=== PATIENT | female | born 1990 | race Caucasian/White ===

== ENCOUNTER 2016-05-27 09:30 | Inpatient (IN) | payer OTHER ==
[~2016-05-27] VITALS: Ht 167.6 cm; Wt 127.0 kg
--- NOTE | 2016-05-31 02:28 | HPE ---
DATE OF SCHEDULED ADMISSION: 06/03/2016 Coming for a primary section because of breech presentation. 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 Her lab values show that she is O positive, HIV negative, hepatitis negative, rapid plasma reagin (RPR) negative, rubella immune. Varicella nonimmune. Urine was negative. Pap showed ASCUS. Gonorrhea and chlamydia are negative. 1st-hour GTT was 142, and her 3-hour GTT fasting was 90, 1-hour was 165, 2-hour was 104, and 3-hour was 102. She has been monitored presently and in the past because of breech presentation, and we had a discussion regarding a primary section for breech presentation. We did mention to her that, at the time of admission for elective primary section, we would re-evaluate whether she is breech or not and, at that time, if she still continued to be breech, we go head and to do the section. The rest of her history is unremarkable. She has weekly nonstress tests showing category 1 strip. She is normocephalic, atraumatic. Neck full range of motion. Pupils equal and reactive to light. Distal pulses are symmetric. No evidence of deep venous thrombosis (DVT), pulmonary embolism (PE), or superficial phlebitis. Chest is clear bilaterally to the bases. No wheezes or rhonchi. No costovertebral angle (CVA) tenderness. Uterus is , appropriate symphysis fundus height with four quadrant bowel sounds noted. She has no rashes, lesions, or pruritus. No arthralgia or myalgia. No complaint of cough, wheezes, shortness of breath, or dyspnea on exertion. She has no chest pain. ALLERGIES: BENADRYL apparently gives her rash, as does SULFA. She has no complaints of cough, wheezes, shortness of breath, or dyspnea on exertion. No chest pain. Is not bleeding. Neurologically complete. No incontinence, urgency, or frequency. No nausea, vomiting, diarrhea, or constipation. Her 3-hour GTT was normal. She does have a BMI over 40. Her gynecologic history shows that she has ASCUS on a Pap smear. She does not smoke or drink or abuse alcohol and is with no domestic violence. We discussed the risks and benefits of section, including hemorrhage, infection, perforation, , remote possibility of blood transfusion, remote possibility of hysterectomy, remote possibility of laceration, the fetus in a intensive care unit (NICU) for evaluation. We also discussed skin cleansing prior to section. I have asked her to get some Hibiclens and do that 2-3 times per day for the next 5 days. She had an amniotic fluid index (VESNA) today, which showed that it was 11.2, breech presentation. heart was normal at 138 beats per minute. Placenta was anterior, category class III with some calcifications. Normal movement of limbs, and we did see occasional respirations. IN SUMMARY: We have a term gestation for primary section because of breech presentation.
[2016-05-31] MEDS ORDERED: CLAR10CA3 PO (13:29)
[2016-05-31] MEDS ORDERED: VALT1TAB PO (13:29)
[2016-05-31] MEDS ORDERED: PREN1TAB18 PO (13:29)
[2016-05-31] MEDS ORDERED: MIRA3350 PO (13:29)
[2016-06-03] MEDS ORDERED: BICITRA 30ML SOLN UDC PO ONE (06:00)
[2016-06-03] MEDS ORDERED: BUPIVACAINE HCL 0.25% 10 ML VIAL SC ONE (06:00)
[2016-06-03] MEDS ORDERED: ACETAMINOPHEN 650 MG SUPP PR SCH (06:15)
[2016-06-03 06:21] VITALS: BP 127/68
--- NOTE | 2016-06-03 10:42 | DSES ---
DATE OF ADMISSION: 06/03/2016 DATE OF DISCHARGE: 06/03/2016 This lady was admitted for a primary section because of breech presentation. On admission, we had done a scan, at which time we found that it was vertex presenting. Amniotic fluid total in two quadrants was 13.26 cm. cardiac activity was 144 beats per minute. Limb movement was noted and there was breathing movement noted, giving her biophysical profile of 8/8. The patient was very upset because baby had turned from breech to vertex and wanted have a section; however, initially, indication for section was breech presentation. After discussing the risks and benefits of section versus vaginal delivery. and more importantly, if she spontaneously goes into labor, it would improve her chance of vaginal delivery. The patient was still unconvinced that was the root of method that delivery that she wanted; however, there is no other indication for section. On pelvic examination, vertex was presenting. She is 2 cm, midposition, about 50% effaced and minus three station, with some show noted because of the digital examination. The rest the examination is unremarkable. She had a category one strip. Normocephalic, atraumatic. Pupils equal and reactive to light. NECK: Full range of motion. CHEST: Clear bilaterally to bases. HEART: Sounds are normal. No cerebrovascular accident (CVA) tenderness. Nontender uterus. Four quadrant bowel sounds are noted. Appropriate symphysis fundus height. She has no rashes or lesions or pruritus. She is wearing glasses. No arthralgia, myalgia. No complaints of cough, wheezes, shortness of breath or dyspnea on exertion. No chest pain. She is not bleeding. She is neurologically complete. No incontinency, urgency or frequency. No nausea, vomiting, diarrhea or constipation. No diabetic issues. PAST MEDICAL HISTORY: Unremarkable. She does not smoke or drink, does not abuse drugs. She is to a soldier. In summary we have a 39+ weeks of gestation admitted for elective primary section because of breech presentation. Ultrasound diagnosis suggests a vertex presenting with a biophysical profile of 8/8 and an NST of 2/2. Patient is having an appointment next week for discussion of induction of labor at the appropriate interval at 41 weeks, at which time we will scan her and make sure that she is still in the vertex presentation.
== END 2016-06-03 07:00 | disposition home or self-care (01) | DRG 781 ==
LOC: M LDI 06-03 05:46
PROVIDERS: ADMIT Obstetrics & Gynecology; ATTEND Obstetrics & Gynecology
DX: O32.1XX0 Maternal care for breech presentation, not applicable or unspecified (principal); O98.513 Other viral diseases complicating pregnancy, third trimester; Z68.41 Body mass index [BMI] 40.0-44.9, adult; O99.213 Obesity complicating pregnancy, third trimester; Z88.2 Allergy status to sulfonamides; Z88.8 Allergy status to other drugs, medicaments and biological substances; E66.9 Obesity, unspecified; Z3A.39 39 weeks gestation of pregnancy; B00.9 Herpesviral infection, unspecified; Z79.899 Other long term (current) drug therapy

== ENCOUNTER 2016-06-09 06:29 | Inpatient (IN) | payer OTHER ==
[2016-06-09] VITALS (11 sets, daily range): BP systolic 116–176; BP diastolic 66–92
[~2016-06-09] VITALS: Ht 167.6 cm; Wt 125.0 kg
[~2016-06-09 06:29] MED LIST: CLAR10CA3 PO; MIRA3350 PO; PREN1TAB18 PO; VALT1TAB PO
[2016-06-09 08:13] LABS: MEAN CORPUSCULAR HEMOGLOBIN 30.6 pg (27.0-33.0); MEAN CORPUSCULAR HGB CONC 32.8 g/dl (32.0-36.5); MEAN CORPUSCULAR VOLUME 93.4 fl (80.0-96.0); RED CELL DISTRIBUTION WIDTH 14.4 % (11.5-14.5); WHITE BLOOD COUNT 8.3 K/mm3 (4.0-10.0)
[2016-06-09] MEDS ORDERED: LACTATED RINGER'S 1000 ML IV STA (09:13)
[2016-06-09] MEDS ORDERED: miSOPROStol 25 MCG 1/4 TAB (S0191) PO ONE ×2 (09:15→13:15)
[2016-06-09] MEDS ORDERED: miSOPROStol 50 MCG 1/2 TAB (S0191) PV ONE (17:45)
[2016-06-09] MEDS ORDERED: miSOPROStol 50 MCG 1/2 TAB (S0191) PO ONE (21:30)
[2016-06-09] MEDS ORDERED: diphenhydrAMINE 25 MG CAP PO ONE (22:00)
[2016-06-10] VITALS (14 sets, daily range): BP systolic 119–138; BP diastolic 51–74
[2016-06-10] MEDS: miSOPROStol 50 MCG 1/2 TAB (S0191) PO SCH ×2 (14:00→18:25)
[2016-06-10] MEDS ORDERED: miSOPROStol 50 MCG 1/2 TAB (S0191) As Ordered ONE (14:18)
[2016-06-10] MEDS ORDERED: PROMETHAZINE INJ 25 MG/ML VIAL (J2550) IV ONE (23:30)
[2016-06-10] MEDS ORDERED: OXYTOCIN DRIP 30 UNITS in APPROPRIATE DILUENT 1 EA IV SCH (23:30)
[2016-06-10] MEDS ORDERED: BUTORPHANOL 2 MG/ML INJ (J0595) IV ONE (23:30)
[2016-06-10] MEDS: LR 1,000 ML IV SCH (23:39)
[2016-06-11] VITALS (18 sets, daily range): BP systolic 114–144; BP diastolic 56–79
[2016-06-11] MEDS: LR 1,000 ML IV SCH (07:49)
== END 2016-06-11 14:45 | disposition home or self-care (01) | DRG 782 ==
LOC: M LDI 06:29
PROVIDERS: ADMIT Obstetrics & Gynecology; ATTEND Obstetrics & Gynecology
PROC: 3E0DXGC Introduction of Other Therapeutic Substance into Mouth and Pharynx, External Approach (ICD-10-PCS; principal; 2016-06-09)
DX: O48.0 Post-term pregnancy (principal); O99.213 Obesity complicating pregnancy, third trimester; Z3A.40 40 weeks gestation of pregnancy; E66.9 Obesity, unspecified

== ENCOUNTER 2016-06-15 03:06 | Inpatient (IN) | payer OTHER ==
[~2016-06-15] VITALS: Ht 167.6 cm; Wt 127.0 kg
[2016-06-15] VITALS (12 sets, daily range): BP systolic 129–165; BP diastolic 60–91
[~2016-06-15 03:06] MED LIST changes: -CALC500C16 PO; -COLA100C PO; -KETOROLAC 60 MG/2 ML VIAL (J1885) As Ordered ONE; -LORA1SOL PO; -MORPHINE PRES-FREE INJ 10 MG/10 ML VIAL (J2274) As Ordered ONE; -MOTR200T44 PO; -ONDANSETRON 4MG/2ML VIAL (J2405) As Ordered ONE; -OXYC1TAB23 PO; -OXYTOCIN INJ 10 UNITS/ML VIAL (J2590) As Ordered ONE; -PRENTAB9 PO; -TUMS500C PO; -ePHEDrine SULFATE 25 MG/5 ML(5MG/ML) SYRINGE As Ordered ONE
--- NOTE | 2016-06-15 06:52 | HPE ---
DATE OF ADMISSION: 06/15/2016 This lady is a 26-year-old, 1, para 0, at 40 and 5 weeks of gestation with a history of contractions. She also had a history of questionable premature rupture of membranes; however this was dismissed after wearing a pad for an hour and also the fact that she was Nitrazine negative. On pelvic examination, she was found to be 1 cm with bulging membranes and ballottable presenting part which was vertex presenting. Her risk factors are that she has body mass index (BMI) greater than 40. She is Rh negative and is on HSV prophylaxis. She had previously been admitted for primary section about 10 days ago because of breech presentation which was persistent and when she came in for her primary section she was found to be vertex presenting. She was left for a week and the baby still presented as vertex. We discussed induction of labor. She had an attempted induction of labor with four sets of Cytotec, a program of Pitocin, and all that failed to do anything except give her some uterine contractions and irritability, but did not bring the presenting part down. She was then left for a week and was to come in for a BPP today as well as an appointment tomorrow for discussion of induction of labor. At that time, she will be 41 weeks of gestation. However, she called overnight complaining of contractions every 5 minutes and she said she was breathing through them and query thought she had ruptured membranes. While here, she does not appear in any distress. She had initially a category 2 strip, but with hydration IV, the contractions had spaced out and the heart showed some reactivity. She was to have her BPP and estimated weight ultrasound at 1500 hours today and we moved it up to 0600 hours this morning. On pelvic examination, she was found to be vertex, -4, ballottable, with 1 cm, bulging membranes. No vaginal bleeding. No vaginal loss. Her blood pressures have been in moderate range 158/80, 118 pulse, respirations are 20, and temperature is 98.4. She has urine of 1.015, pH 7, trace of protein and +1 for blood. She never exhibited any other signs of preeclampsia. She had had a previous preeclampsia evaluation which was negative. In summary at this time, with her lab work of O negative, HIV negative, hepatitis negative, RPR negative, rubella immune, Pap ASCUS, urine was negative, gonorrhea and chlamydia negative, GBS negative, and 1-hour glucose was 111, we have a patient at term early with uterine irritability and presenting part which is high. Our plan of management is to get the BPP and estimated weight this morning. Do NST again. Possible induction of labor, if we can with Sawyer bulb this time. The patient requests epidural for anesthesia and we await the appropriate consultations should she remain here for induction of labor. In summary, we have a early term patient with a high presenting part and uterine irritability. We had a discussion with her regarding the plan of management which was supposedly taking place tomorrow, but will take place today. Both her and her expressed understanding of the plan of care.
[2016-06-15] MEDS ORDERED: LR 1,000 ML IV SCH (07:53)
[2016-06-15] MEDS ORDERED: LACTATED RINGER'S 1000 ML IV STA (07:53)
[2016-06-15] MEDS ORDERED: BICITRA 30ML SOLN UDC PO ONE (08:00)
--- NOTE | 2016-06-15 08:00 | REP ---
Clinical: well-being . Comparison: None . Findings: Examination demonstrates a single live intrauterine in cephalic presentation. motion is identified by technologist. Placenta is noted anteriorly and grade three without evidence for placenta previa or abruption. Amniotic fluid volume is normal. No evidence for nuchal cord. Gestational age by LMP 40 weeks 5 days with PHILIP 06/10/2016 . Gestational age by current measurements 39 weeks 4 days with PHILIP 06/18/2016 . FHR equals 153 beats per minute. BPD 9.5 cm 38 weeks 6 days HC 36.7 cm 41+ weeks AC 39.2 cm 41+ weeks FL 7.8 cm 39 weeks 6 days HL 6.9 cm 40 weeks 0 days HC/AC ratio 0.94 Estimated weight 4580 grams. Biophysical profile score equals 8/8. Amniotic fluid index equals 16.7 cm (7.0 - 20.0) Umbilical cord SD ratio ( insertion) equals 2.11 (2.80 - 3.80). Impression: single live advanced gestation in cephalic presentation. Biophysical profile score equals 8/8. VESNA normal. Signed by Darrel Short MD 06/15/2016 07:51 A
[2016-06-15 08:16] LABS: MEAN CORPUSCULAR HEMOGLOBIN 30.4 pg (27.0-33.0); RED CELL DISTRIBUTION WIDTH 14.4 % (11.5-14.5); WHITE BLOOD COUNT 12.3 K/mm3 (4.0-10.0)
[2016-06-15 08:56] LABS: ALBUMIN 2.5 GM/DL (3.2-5.2); ALBUMIN/GLOBULIN RATIO 0.71 (1.00-1.93); ALKALINE PHOSPHATASE 214 U/L (45-117); ALT/SGPT 20 U/L (12-78); ANION GAP 12 MEQ/L (8-16); AST/SGOT 22 U/L (15-37); BILIRUBIN,TOTAL 0.2 MG/DL (0.2-1.0); BLOOD UREA NITROGEN 9 MG/DL (7-18); CALCIUM LEVEL 9.3 MG/DL (8.5-10.1); CARBON DIOXIDE LEVEL 23 MEQ/L (21-32); CHLORIDE LEVEL 105 MEQ/L (98-107); CREATININE FOR GFR 0.74 MG/DL (0.55-1.02); GLOMERULAR FILTRATION RATE > 60.0 (>60); GLUCOSE, FASTING 88 MG/DL (70-105); POTASSIUM SERUM 4.1 MEQ/L (3.5-5.1); SODIUM LEVEL 140 MEQ/L (136-145)
[2016-06-15] MEDS ORDERED: ACETAMINOPHEN 650 MG SUPP PR ONE (09:00)
[2016-06-15] MEDS ORDERED: BUPIVACAINE HCL 0.25% 10 ML VIAL SC ONE (09:00)
[2016-06-15] MEDS ORDERED: NALOXONE INJ 0.4 MG/1 ML VIAL (J2310) IV PRN ×2 (09:20)
[2016-06-15] MEDS ORDERED: METOCLOPRAMIDE INJ 10MG/2ML VIAL (J2765) IV PRN (09:20)
[2016-06-15] MEDS ORDERED: NALBUPHINE HCL 10 MG/ML AMP (J2300) IV PRN ×2 (09:20→11:30)
[2016-06-15] MEDS ORDERED: ONDANSETRON 4MG/2ML VIAL (J2405) IV PRN (09:20)
[2016-06-15 10:20] LABS: CORD GAS ABE V -4.4; CORD GAS HCO3 V 20.7 MEQ/L; CORD GAS O2 SAT V 86.1 %; CORD GAS PCO2 V 38.6 mmHg; CORD GAS PH V 7.348 UNITS; CORD GAS PO2 V 41.9 mmHg; CORD GAS SBC V 20.6 MEQ/L; CORD GAS TCO2 V 21.9 MEQ/L
[2016-06-15 10:22] LABS: CORD GAS ABE A -3.4; CORD GAS HCO3 A 25.9 MEQ/L; CORD GAS O2 SAT A 45.1 %; CORD GAS PH A 7.218 UNITS; CORD GAS PO2 A 21.9 mmHg; CORD GAS SBC A 20.4 MEQ/L; CORD GAS TCO2 A 27.9 MEQ/L
[2016-06-15] MEDS ORDERED: OXYTOCIN DRIP 30 UNITS in APPROPRIATE DILUENT 1 EA IV SCH (10:54)
[2016-06-15] MEDS ORDERED: RHOGAM 300 MCG (1500 IU) INJ (J2790) IM SCH (11:00)
[2016-06-15] MEDS ORDERED: OXYTOCIN INJ 10 UNITS/ML VIAL (J2590) IV ONE (11:00)
[2016-06-15] MEDS ORDERED: PERCOCET 5MG/325MG TAB PO PRN (11:00)
[2016-06-15] MEDS ORDERED: ANUSOL HC CREAM 30GM TOP PRN (11:00)
[2016-06-15] MEDS ORDERED: DOCUSATE SODIUM 100 MG CAP PO PRN (11:00)
[2016-06-15] MEDS ORDERED: MEASLES,MUMPS,RUBELLA VACCINE INJ (MMR-II) (90707) SC SCH (11:00)
[2016-06-15] MEDS ORDERED: METHYLERGONOVINE MALEATE 0.2 MG TAB PO PRN (11:00)
[2016-06-15] MEDS ORDERED: MOM 30ML SUSPENSION UDC PO PRN (11:00)
[2016-06-15] MEDS ORDERED: fentaNYL 100 MCG/2 ML INJECTION (J3010) IV PRN (11:30)
[2016-06-15] MEDS ORDERED: MEPERIDINE INJ 25 MG/ML VIAL (J2175) IV PRN (11:30)
[2016-06-15] MEDS ORDERED: TUMS500C PO (11:49)
[2016-06-15] MEDS: LR 1,000 ML IV SCH (14:00)
[2016-06-15] MEDS: IBUPROFEN 800 MG TAB PO SCH ×2 (14:00→20:05)
[2016-06-16] VITALS (8 sets, daily range): BP systolic 134–165; BP diastolic 65–97
[2016-06-16] MEDS: IBUPROFEN 800 MG TAB PO SCH ×3 (03:25→19:32)
[2016-06-16 07:02] LABS: MEAN CORPUSCULAR HEMOGLOBIN 31.2 pg (27.0-33.0); MEAN CORPUSCULAR HGB CONC 33.5 g/dl (32.0-36.5); MEAN CORPUSCULAR VOLUME 93.3 fl (80.0-96.0); RED CELL DISTRIBUTION WIDTH 14.4 % (11.5-14.5); WHITE BLOOD COUNT 10.8 K/mm3 (4.0-10.0)
[2016-06-16] MEDS: PRENATAL VITAMIN TAB PO SCH (07:51)
[2016-06-16] MEDS: PERCOCET 5MG/325MG TAB PO PRN (16:39)
--- NOTE | 2016-06-16 17:47 | IPN ---
DATE: 06/16/2016 DAY NOTE This lady is now a 26-year-old 1, para 1, had a primary section for post dates, macrosomia, polyhydramnios, body mass index (BMI) greater than 41, failed induction. Meconium stained liquor, cord issue and Bandl's ring. On her first day, we discussed phlebitis, cystitis, mastitis, endometritis and cellulitis, diet, excise, pain management, perineal and breast care. She is having a little tenderness on the left side. Incision is clean and dry. She has had a shower, voiding, has had a bowel movement. Blood pressure today is 140/80, respirations 20, pulse 105, temperature is 98.2. Her admitting hemoglobin was 11.8, hematocrit 35.7, platelets 163. hemoglobin 9.9, hematocrit 29.6 and platelets are 164. She delivered a live female with an arterial blood gas of 7.21, base excess -3.4, venous pH 7.34, base excess -4.4. Patient is anticipating discharge Monday at the latest. Baby is being reevaluated by the nursery and the audio/video engineer at the present time. The patient is requesting oral contraceptives. We discussed the fact of a 6-week is ideal when to start. She is bottle feeding and will not impact on any breast feeding issues. On the rest of the examination, chest is clear bilaterally to bases. Heart: Sounds are normal. No murmurs or rubs. Abdomen: Soft. Bowel sounds are found in all four quadrants. She has some pedal edema but that is because of her weight. Her body mass index (BMI) is greater than 44, but there is no evidence of deep vein thrombosis (DVT), pulmonary embolism (PE) or superficial phlebitis. The rest of the examination is unremarkable. She is mobilizing and doing well. In summary, we have a first day post section, anticipating discharge latest Monday. We will implement medications for her to go home.
[2016-06-16] MEDS: LR 1,000 ML IV SCH (22:00)
[2016-06-17] MEDS: PERCOCET 5MG/325MG TAB PO PRN ×3 (00:17→22:30)
[2016-06-17] MEDS: IBUPROFEN 800 MG TAB PO SCH ×3 (04:00→14:04)
[2016-06-17 06:38] VITALS: BP 143/81
[2016-06-17] MEDS: PRENATAL VITAMIN TAB PO SCH (08:18)
[2016-06-18] MEDS: IBUPROFEN 800 MG TAB PO SCH (04:00)
[2016-06-18 06:00] VITALS: BP 126/68
[2016-06-18] MEDS: PERCOCET 5MG/325MG TAB PO PRN (08:06)
[2016-06-18] MEDS: PRENATAL VITAMIN TAB PO SCH (08:06)
[2016-06-18] MEDS ORDERED: MIRA3350 PO (10:44)
[2016-06-18] MEDS ORDERED: LORA1SOL PO (10:44)
[2016-06-18] MEDS ORDERED: OXYC1TAB23 PO (10:44)
[2016-06-18] MEDS ORDERED: MOTR200T44 PO (10:44)
[2016-06-18] MEDS ORDERED: PRENTAB9 PO (10:44)
[2016-06-18] MEDS ORDERED: CALC500C16 PO (10:44)
[2016-06-18] MEDS ORDERED: COLA100C PO (10:44)
== END 2016-06-18 11:35 | disposition home or self-care (01) | DRG 765 ==
LOC: M LDO 03:06 → M LDI 07:56 → M OBS 12:36
PROVIDERS: ADMIT Obstetrics & Gynecology; ATTEND Obstetrics & Gynecology
PROC: 10D00Z1 Extraction of Products of Conception, Low, Open Approach (ICD-10-PCS; principal; 2016-06-15 09:04)
DX: O48.0 Post-term pregnancy (principal); O40.3XX0 Polyhydramnios, third trimester, not applicable or unspecified; Z68.41 Body mass index [BMI] 40.0-44.9, adult; Z37.0 Single live birth; Z3A.40 40 weeks gestation of pregnancy; O36.63X0 Maternal care for excessive fetal growth, third trimester, not applicable or unspecified; O61.0 Failed medical induction of labor

== ENCOUNTER → 2016-06-15 | Outpatient (CLI) | payer OTHER ==
[~2016-06-15] MED LIST changes: +CALC500C16 PO; +COLA100C PO; +KETOROLAC 60 MG/2 ML VIAL (J1885) As Ordered ONE; +LORA1SOL PO; +MORPHINE PRES-FREE INJ 10 MG/10 ML VIAL (J2274) As Ordered ONE; +MOTR200T44 PO; +ONDANSETRON 4MG/2ML VIAL (J2405) As Ordered ONE; +OXYC1TAB23 PO; +OXYTOCIN INJ 10 UNITS/ML VIAL (J2590) As Ordered ONE; +PRENTAB9 PO; +TUMS500C PO; +ePHEDrine SULFATE 25 MG/5 ML(5MG/ML) SYRINGE As Ordered ONE
== END ==
LOC: M RAD 15:00
PROVIDERS: ATTEND Obstetrics & Gynecology
DX: Z36 Encounter for antenatal screening of mother (principal); Z3A.40 40 weeks gestation of pregnancy
CPT/HCPCS: J1885; J2274; J2405; J2590

== ENCOUNTER 2016-07-07 20:56 | Emergency (ER) | payer OTHER ==
[~2016-07-07] VITALS: Ht 167.6 cm; Wt 114.8 kg
[~2016-07-07 20:56] MED LIST changes: +CALC500C16 PO; +COLA100C PO; +LORA1SOL PO; +MOTR200T44 PO; +OXYC1TAB23 PO; +PRENTAB9 PO; +TUMS500C PO
[2016-07-07 22:20] LABS: BASO # 0.1 K/mm3 (0.0-0.2); BASO % 0.6 % (0.0-1.0); EOS # 0.3 K/mm3 (0.0-0.50); EOS % 2.4 % (0.0-3.0); LARGE UNSTAINED CELL # 0.2 K/mm3 (0.0-0.4); LARGE UNSTAINED CELL % 1.9 % (0.0-4.0); LYMPH # 2.2 K/mm3 (1.5-6.5); LYMPH % 18.9 % (24.0-44.0); MEAN CORPUSCULAR HEMOGLOBIN 29.5 pg (27.0-33.0); MEAN CORPUSCULAR HGB CONC 32.8 g/dl (32.0-36.5); MEAN CORPUSCULAR VOLUME 90.1 fl (80.0-96.0); MONO # 0.6 K/mm3 (0.0-0.8); MONO % 5.2 % (0.0-5.0); NEUTROPHILS # 8.2 K/mm3 (1.8-7.7); PLATELET COUNT, AUTOMATED 320 k/mm3 (150-450); WHITE BLOOD COUNT 11.6 K/mm3 (4.0-10.0)
[2016-07-07 22:38] LABS: ANION GAP 10 MEQ/L (8-16); BLOOD UREA NITROGEN 18 MG/DL (7-18); CALCIUM LEVEL 8.9 MG/DL (8.5-10.1); CARBON DIOXIDE LEVEL 28 MEQ/L (21-32); CHLORIDE LEVEL 103 MEQ/L (98-107); CREATININE FOR GFR 1.06 MG/DL (0.55-1.02); GLOMERULAR FILTRATION RATE > 60.0 (>60); GLUCOSE, FASTING 77 MG/DL (70-105); POTASSIUM SERUM 3.9 MEQ/L (3.5-5.1); SODIUM LEVEL 141 MEQ/L (136-145)
[2016-07-08] MEDS ORDERED: ISOVUE-370 76% 100ML VIAL (Q9967) As Ordered ONE (00:23)
--- NOTE | 2016-07-08 01:00 | REPUSA ---
CT angiogram of the chest Clinical statement: Chest pain and shortness of breath. Technique: Multiple axial CT images were obtained from the thoracic inlet through the upper abdomen a fter a bolus administration of nonionic intravenous contrast. Coronal and sagittal reconstructions we re also obtained. No comparison is available. Findings: The pulmonary arteries are well-opacified with contrast, with no intraluminal filling defec ts to suggest embolism. The thoracic aorta is unremarkable. Thyroid gland is within normal limits. Th ere is no thoracic lymphadenopathy. There are no pericardial or pleural effusions. The lungs are javier r. Limited imaging of the upper abdomen is unremarkable. There are no suspicious osseous lesions. Impression: Unremarkable CT examination of the chest. No evidence of pulmonary embolism.
[2016-07-08 01:51] VITALS: BP 115/69
--- NOTE | 2016-07-09 12:16 | ECGEPIP ---
Stationary ECG Study [facility] - ED Test Date: 2016-07-07 Pat Name: SEBLE FUNEZ Department: Room: - Gender: F Stationary Engineer: : 1990 Requested By: NEERAJ Sterling Order Number: [id number] Reading MD: Maya Sin Measurements Intervals [place] Rate: 69 P: 52 UT: 212 QRS: 49 QRSD: 99 T: 35 QT: 439 QTc: 472 Interpretive Statements SINUS RHYTHM WITH FIRST DEGREE AV BLOCK NO PRIOR FOR COMPARISON Electronically Signed On 07-09-2016 12:15:49 EST by Maya Sin
== END 2016-07-08 02:04 | disposition home or self-care (01) ==
LOC: EDBD 20:56 → M ED 23:17
DX: R07.89 Other chest pain (principal); Z79.899 Other long term (current) drug therapy; Z91.010 Allergy to peanuts; Z88.2 Allergy status to sulfonamides
CPT/HCPCS: 71275; 80048; 82550; 82553; 85025; 87070; 87077; 87186; 93005; 93041; 94760; 99285; Q9967

== ENCOUNTER → 2016-08-11 | Outpatient (REF) | payer OTHER ==
[~2016-08-11] MED LIST changes: -COLA100C PO; +COLA100C3 PO
== END ==
LOC: M LAB REF 13:13
PROVIDERS: ATTEND Advanced Practice Midwife
DX: Z12.4 Encounter for screening for malignant neoplasm of cervix (principal)

== ENCOUNTER → 2016-09-07 | Outpatient (CLI) | payer OTHER ==
--- NOTE | 2016-09-07 07:35 | REP ---
Clinical: Right upper quadrant and epigastric pain Technique: Real time ozuna scale ultrasound examination using curved array transducer. Findings: Liver and pancreas are normal in contour, size, and echogenicity without focal hepatic or pancreatic lesions identified. Gallbladder demonstrates multiple small gallstones without wall thickening or pericholecystic fluid. No biliary ductal dilatation is appreciated and the common bile duct measures 7 mm maximal diameter which is upper limits of normal. The right kidney is normal in reniform shape without hydronephrosis and measures 12.9 x 5.3 x 4.0 cm. Abdominal aorta normal. No ascites. Impression: 1. Cholelithiasis with common bile duct at upper limits of normal. No definite sonographic evidence for acute cholecystitis. 2. Normal appearance to the liver, pancreas, and right kidney. Signed by Darrel Short MD 09/07/2016 07:26 A
== END ==
LOC: M RAD 06:42
PROVIDERS: ATTEND Family Medicine
DX: R10.9 Unspecified abdominal pain (principal)

== ENCOUNTER 2016-12-27 07:10 | Day surgery (SDC) | payer OTHER ==
[~2016-12-27] VITALS: Ht 167.6 cm; Wt 113.4 kg
[~2016-12-27 07:10] MED LIST changes: -COLA100C3 PO; +COLA100C5 PO; +LORA10CA PO; +LR 1,000 ML IV ONE; +LR 1,000 ML IV SCH; +MONOTAB PO; +MULTTAB24 PO
[2016-12-27] MEDS ORDERED: BUPIVACAINE HCL 0.25% 30 ML VIAL As Ordered ONE (07:26)
[2016-12-27] MEDS ORDERED: CONRAY-60 60% 50ML VIAL (Q9961) As Ordered ONE (07:26)
[2016-12-27 08:07] LABS: CONTROL LINE HCG INT CTR LINE PRESENT
[2016-12-27] MEDS ORDERED: fentaNYL 250 MCG/5 ML INJECTION (J3010) As Ordered ONE (08:46)
[2016-12-27] MEDS ORDERED: ROCURONIUM BROMIDE 50 MG/5 ML VIAL/SYRINGE As Ordered ONE ×2 (08:46→10:57)
[2016-12-27] MEDS ORDERED: LIDOCAINE 2% INJ 100 MG/5 ML SDV (FOR ANES.) As Ordered ONE (08:46)
[2016-12-27] MEDS ORDERED: PROPOFOL 200 MG/20 ML VIAL As Ordered ONE (08:46)
[2016-12-27] MEDS ORDERED: MIDAZOLAM INJ 2 MG/2 ML VIAL (J2250) As Ordered ONE (08:47)
[2016-12-27] MEDS ORDERED: dexameTHASONE 4 MG/ML 1ML VIAL (J1100) As Ordered ONE (10:19)
[2016-12-27] MEDS ORDERED: KETOROLAC 60 MG/2 ML VIAL (J1885) As Ordered ONE (10:26)
[2016-12-27] MEDS ORDERED: ONDANSETRON 4MG/2ML VIAL (J2405) As Ordered ONE (10:26)
[2016-12-27] MEDS ORDERED: GLYCOPYRROLATE INJ 0.2 MG/ML 2 ML VIAL As Ordered ONE (10:27)
[2016-12-27] MEDS ORDERED: NEOSTIGMINE 1MG/ML 5 ML SYRINGE (J2710) As Ordered ONE (10:27)
--- NOTE | 2016-12-27 11:46 | REP ---
INTRAOPERATIVE CHOLANGIOGRAM: Four views. HISTORY: Laparoscopic cholecystectomy. 10 seconds fluoroscopy time is reported. FINDINGS: A sequence of four last image hold fluoro spot radiographs of the right upper quadrant documents cystic duct cannula and contrast injection. The visualized intrahepatic and extrahepatic biliary tree is unremarkable. No filling defects to suggest a choledocholith. Contrast is seen in the descending duodenum. No extravasation. IMPRESSION: :Unremarkable intraoperative cholangiogram. Signed by Rigoberto Munguia MD 12/27/2016 01:06 P
[2016-12-27] MEDS ORDERED: LR 1,000 ML IV SCH (12:00)
[2016-12-27] MEDS ORDERED: ONDANSETRON 4MG/2ML VIAL (J2405) IV PRN (12:00)
[2016-12-27] MEDS ORDERED: PERCOCET 5MG/325MG TAB PO PRN (12:00)
[2016-12-27] MEDS ORDERED: fentaNYL 100 MCG/2 ML INJECTION (J3010) IV PRN (12:00)
[2016-12-27] MEDS ORDERED: METOCLOPRAMIDE INJ 10MG/2ML VIAL (J2765) As Ordered ONE (12:24)
[2016-12-27] MEDS ORDERED: IBUPROFEN 600 MG TAB PO PRN (12:45)
[2016-12-27] MEDS ORDERED: NORCO, ANEXSIA 5/325MG TABLET (HYDROcodone/ACETAMINOPHEN) PO PRN (12:45)
[2016-12-27] MEDS ORDERED: ACETAMINOPHEN TAB 650MG DOSE (2X325MG) PO PRN (12:45)
[2016-12-27 14:15] VITALS: BP 133/72
--- NOTE | 2016-12-29 07:26 | RO ---
DATE OF PROCEDURE: 12/27/2016 PREOPERATIVE DIAGNOSIS: Symptomatic gallstones. POSTOPERATIVE DIAGNOSIS: Symptomatic gallstones. PROCEDURE PERFORMED: Laparoscopic cholecystectomy with intraoperative cholangiogram. SURGEON: Arturo Rubalcava MD ANESTHESIA: General. INDICATIONS FOR PROCEDURE: Patient is a 26-year-old woman with a history of episodic upper abdominal discomfort consistent with biliary colic. Ultrasound confirmed cholelithiasis and suggested a slight enlargement of the common bile duct. She is scheduled for a laparoscopic cholecystectomy with intraoperative cholangiogram. DESCRIPTION OF OPERATIVE PROCEDURE: The patient was placed under general endotracheal anesthesia. The patient's abdomen was prepped and draped in a sterile fashion. 0.25% Marcaine was infiltrated at the trocar sites. A short supraumbilical midline incision was made and deepened through the midline fascia. The peritoneum was opened bluntly and a Jarrod cannula was inserted. The abdomen was insufflated with carbon dioxide gas. The laparoscope was placed. Initial examination showed a normal-appearing liver. The fundus of the gallbladder was seen and appeared not acutely inflamed. Portions of the stomach and small and large bowel were seen and appeared normal. The patient was tilted to a reverse Trendelenburg position and rolled slightly to the left. A 5 mm trocar was placed in the left upper quadrant and two 5 mm trocars were placed in the right upper quadrant. Graspers were inserted and the gallbladder was grasped and elevated. Dissection was then begun at the neck of the gallbladder. The peritoneum was opened using the hook cautery. Dissection continued and the cystic duct was clearly identified and encircled. The cystic duct was clipped proximally and nicked just below this clip. A balloon cholangiogram catheter was inserted and cholangiograms were obtained with the injection of 30% Conray. The images obtained by fluoroscopy revealed a normal tapering of the common bile duct with free flow of contrast into the duodenum and no filling defects. The intrahepatic radicals were incompletely filled, but the right and left hepatic ducts were well seen. The cholangiogram catheter was removed and the cystic duct was clipped and divided. With further dissection, the cholecystic artery was clearly identified and this was also clipped and divided. The gallbladder was then dissected free from the gallbladder bed using cautery dissection. The gallbladder was placed in an Endopouch. The right upper quadrant was irrigated and inspected. There was no evidence of bleeding or bile leak. The patient was returned to a flat position. The abdomen was deflated and the trocars were all removed. The gallbladder was recovered through the Christianson site and sent for permanent pathology. The fascia at the Christianson site was closed with interrupted #2-0 Vicryl sutures. The skin incisions were all closed with buried #5-0 Vicryl and Steri-Strips. Light dressings were applied. The patient tolerated the procedure well without apparent complication. She was awakened in the operating room, extubated and moved to the recovery room in stable condition. NAZ
== END 2016-12-27 15:10 | disposition home or self-care (01) ==
LOC: M SDC 07:10
PROVIDERS: ATTEND Surgery
DX: K80.20 Calculus of gallbladder without cholecystitis without obstruction (principal); K21.9 Gastro-esophageal reflux disease without esophagitis; E66.9 Obesity, unspecified; Z88.2 Allergy status to sulfonamides; Z79.899 Other long term (current) drug therapy; Z91.010 Allergy to peanuts
CPT/HCPCS: 47563; 74300; 84703; 88304; J1100; J1885; J2250; J2405; J2710; J2765; J3010; Q9961

== ENCOUNTER → 2017-04-23 | Outpatient (REF) | payer OTHER ==
[~2017-04-23] MED LIST changes: -LR 1,000 ML IV ONE; -LR 1,000 ML IV SCH
== END ==
LOC: M LAB REF 21:38
PROVIDERS: ATTEND Physician Assistant
DX: R30.0 Dysuria (principal)

== ENCOUNTER → 2017-04-25 | Outpatient (CLI) | payer OTHER ==
--- NOTE | 2017-04-26 07:15 | REPUSA ---
Clinical history: flank pain. Findings: The urinary bladder appears unremarkable. No urinary bladder masses are seen. The right kid ezekiel measures 14.1 x 5.5 x 4.5 cm. The left kidney measures 13.4 x 6.8 x 5.4 cm. The kidneys demonstra te normal echotexture and echogenicity. There is no evidence of hydronephrosis or nephrolithiasis. No renal masses are seen. No free fluid is appreciated. Impression: Unremarkable ultrasound examination of the kidneys.
== END ==
LOC: M RAD 18:20
PROVIDERS: ATTEND Physician Assistant
DX: R10.9 Unspecified abdominal pain (principal); R31.9 Hematuria, unspecified

== ENCOUNTER → 2017-10-05 | Outpatient (REF) | payer OTHER ==
[2017-10-07 14:10] LABS: HPV HYBRID CAPTURE II Negative (Negative)
== END ==
LOC: M LAB REF 14:34
DX: Z01.411 Encounter for gynecological examination (general) (routine) with abnormal findings (principal); Z11.51 Encounter for screening for human papillomavirus (HPV); N72 Inflammatory disease of cervix uteri
CPT/HCPCS: G0123